=== PATIENT | female | born 2000 ===

== ENCOUNTER → 2025-01-11 16:29 | Outpatient (CLI) | payer OTHER, SELFPAY ==
--- NOTE | 2025-01-11 16:36 | DI.US.S_ITS ---
PROCEDURE: US RENAL COMPLETE INDICATIONS: uti TECHNIQUE: Real-time scanning was performed of the kidneys and bladder, with image documentation. COMPARISON: None. FINDINGS: Kidneys: Kidneys are normal in size. Right kidney measures 9.3 cm long; left kidney measures 11.9 cm long. Right renal cortical thickness is 1.5 cm; left renal cortical thickness is 1.3 cm. Renal cortical echotexture is normal. No hydronephrosis or nephrolithiasis. No suspicious solid mass lesions. Bladder: Pre-void bladder volume is 338 mL. Post-void residual is 34 mL. Pre- void images demonstrate no intraluminal masses or stones. On pre-void images, both ureteral jets are noted with color Doppler interrogation. (Of note, ureteral jets may not be detectable in up to 25% of cases due to insufficient differences in specific gravity between ureteral and bladder urine). Miscellaneous: No free pelvic fluid. IMPRESSION: Normal appearing kidneys, without hydronephrosis. Mild postvoid residual, 34 cc. Dictated by: Sean Bernal M.D. on 01/11/2025 at 16:55 Approved by: Sean Bernal M.D. on 01/11/2025 at 16:56
== END ==
LOC: US 16:33
PROVIDERS: PCP Family Medicine; Referring Provider Physician Assistant; Visit Provider Physician Assistant
DX: N39.0 Urinary tract infection, site not specified (principal)
CPT/HCPCS: 76770